=== PATIENT | female | born 1980 | race Two or more races ===

== ENCOUNTER 2024-09-10 09:35 | Outpatient (RCR) | payer MEDICAID, SELFPAY | END 2024-09-22 23:59 | disposition home or self-care (01) | LOC: SCTC 09:35 | PROVIDERS: PCP Physician Assistant; Referring Provider Physician Assistant; Visit Provider Nurse Practitioner Family | DX: C50.812 Malignant neoplasm of overlapping sites of left female breast (principal); Z17.421 Hormone receptor negative with human epidermal growth factor receptor 2 negative status; C50.211 Malignant neoplasm of upper-inner quadrant of right female breast; Z17.0 Estrogen receptor positive status [ER+]; Z17.22 Progesterone receptor negative status; Z17.32 Human epidermal growth factor receptor 2 negative status; Z15.01 Genetic susceptibility to malignant neoplasm of breast; Z92.3 Personal history of irradiation; Z88.8 Allergy status to other drugs, medicaments and biological substances; Z92.21 Personal history of antineoplastic chemotherapy; M81.0 Age-related osteoporosis without current pathological fracture; Z79.810 Long term (current) use of selective estrogen receptor modulators (SERMs); E11.9 Type 2 diabetes mellitus without complications; E66.9 Obesity, unspecified; Z68.41 Body mass index [BMI] 40.0-44.9, adult; K76.0 Fatty (change of) liver, not elsewhere classified; Z79.85 Long-term (current) use of injectable non-insulin antidiabetic drugs; K59.00 Constipation, unspecified | CPT/HCPCS: 99212; G0463 ==

== ENCOUNTER 2025-01-01 15:39 | Outpatient (RCR) | payer MEDICAID, SELFPAY ==
--- NOTE | 2025-01-20 22:22 | CTCFLWUP_ITS ---
Patient: MOI TINSLEY : 1980 Page 4 of 6 FOLLOW UP NOTE DATE OF SERVICE: 01/01/2025 NAME: MOI TINSLEY ACCOUNT: [id number] : 1980 AGE: 44 INTERVAL HISTORY: Patient doing well. She is losing weight which she attributes to Ozempic. She is on tamoxifen. 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 Bilateral modified radical mastectomies. BRCA1 positive. Patient is allergic to Taxol. Patient had 4 cycles of AC followed by Abraxane. Bilateral salpingo-oophorectomies (10/15/2020) Anastrozole started on 10/30/2020-06/23/2023, discontinued due to osteoporosis, started on tamoxifen 20 mg daily on 06/23/2023. DEXA, osteoporosis, 06/13/2023 Reclast started on 08/31/2023 History of fatty liver Obesity, BMI 43.2 (02/01/2024) REASON FOR TODAY?S VISIT: This is office follow-up visit for breasts cancer and osteoporosis. Malignant neoplasm of upper-outer quadrant of left female breast [ICD10] C50.412; Malignant neoplasm of central portion of right female breast [ICD10] C50.111 DATE OF DIAGNOSIS: 2018 STAGE/TNM: T2 N0 M0 Residual disease after chemotherapy Triple negative high-grade invasive carcinoma of the left breast in 2019 and high-grade invasive ductal carcinoma of the right breast ER positive TREATMENT HISTORY: Care?Plan Start?Date Cycle Day Intent DOXOrubicin?60,?Cyclophos?600 04/19/2019 1 14 Primary-Neoadjuvant Taxol?175/m2?q?2?wks?done?dense?for?4?cycles 07/19/2019 1 14 Curative?(adjuvant) Abraxane?125?mg?wkly?adj?shek 11/26/2019 1 8 Curative?(adjuvant) Lupron?7.5?mg 06/02/2020 1 30 Curative?(adjuvant) Reclast 08/16/2023 1 365 Palliative HISTORY OF PRESENT ILLNESS: Ms. Tinsley is here at [facility]. Patient complaining of constipation that started 1 month ago when she started Ozempic for her diabetes and weight management. Patient reports she has an upcoming appointment with GI in October 2024 for colonoscopy consultation due to an anal fissure from history of diarrhea. No diarrhea at this time. Patient denies bloody stools, denies black stools. Patient reports good appetite and energy levels. Patient has not received annual Reclast that is due this month, plans to have her wisdom tooth extracted soon and then restart Reclast. Denies any cough, chest pain, abdominal pain or leg cramps, fever. Patient taking tamoxifen 20 mg daily, tolerating it well. Ms. Tinsley is also taking Citracal 1 tablet p.o. twice daily. History of fatty liver and elevated LFTs , patient following up with PCP for management. Labs from 09/04/2024 shows CEA 0.7, CA 15-3 11.2. HISTORY: Moi Tinsley is a 44-year-old S[place] speaking female 11/08/2018: Patient had left breast ultrasound for history of a palpable left breast mass. Ultrasound showed a 1.5 x 1.8 x 1.8 lobulated hypoechoic mass in the left breast 4 cm from the nipple at 11 o'clock position. 11/14/2018: Bilateral breast mammograms confirmed a mass at 11 o'clock position in the left breast with irregular margins. 02/14/2019: Patient had repeat left breast ultrasound which showed a 3.1 x 2.1 x 2.6 cm oval mass with indistinct margins, vascular at 12 o'clock position as well as enlarged left axillary lymph nodes measuring 2.7 x 1.7 cm in size. 02/14/2019: She had ultrasound-guided biopsy of the left breast mass. Pathology showed a high-grade invasive mammary carcinoma without any lymphovascular invasion or perineural invasion. It was ER negative, WV negative as well as HER-2/coral negative. 03/13/2019: Fine-needle aspiration of the right breast mass showed ER positive high-grade malignant mammary carcinoma. Specimen was not formalin fixed and the prognostic hormonal markers were not done. Fine-needle aspiration of the left axillary lymph node showed malignant cells most consistent with metastatic mammary carcinoma. 03/29/2019: CT scan of NCAP- CT scan of the neck with IV contrast test showed bilateral carotid triangle lymph nodes the largest on the left side measuring up to 11 mm in size. Left retroclavicular lymph nodes the largest [address] scan of the chest abdomen pelvis with IV contrast showed bilateral breast masses as well as left axillary lymph nodes. No mediastinal adenopathy or pulmonary parenchymal nodules were noted. No metastatic disease in the abdomen or pelvis. Negative for osseous metastatic disease. 03/30/2019: PET CT scan?Non hypermetabolic cervical lymphadenopathy. 04/03/2019: Bilateral breast MRI: Left breast showed a 4.3 x 4 cm suspicious mass at 12 o'clock position with metastatic left axillary lymph nodes, the largest 32 mm in size. Right breast showed a 1.5 x 1.4 cm mass at 1 o'clock position with additional multiple nodular foci of breast carcinoma extending anteriorly to the nipple as well as metastatic right axillary lymph nodes. 04/04/2019: Left carotid lymph node fine-needle aspiration was negative for malignancy. 04/18/2019: Echocardiogram?LVEF 65%. 04/19/2019? 06/07/2019: Patient received 4 cycles of dose dense AC chemotherapy in the neoadjuvant setting 07/19/2019: Patient received first cycle of Taxol. 08/09/2019: Patient developed severe reaction to Taxol during her second cycle with the difficulty breathing as well as sensation of passing out. Only 19.6 mL of Taxol was given. She developed these reactions 7 minutes into infusion. For the Taxol infusion was discontinued. 10/22/2019: Patient had bilateral modified radical mastectomy. Right breast specimen showed a 2.5 x 2.1 x 1.5 cm (ypT2, N0) high-grade invasive ductal carcinoma. 16 lymph nodes were negative for metastatic disease. Left breast specimen did not show any evidence of residual cancer. 18 lymph nodes were negative for metastatic disease. 12/06/2019?02/14/2020: Patient is received 9 weekly dose of Abraxane in the adjuvant setting. 03/10/2020?05/16/2020: Patient received 6300 cGy radiation to the right chest. 03/25/2020: PET CT scan? 04/23/2020: MRI of the brain with contrast? 05/16/2020: Patient started having menstrual. Which lasted for about 3 days. 06/12/2020: Patient received Lupron 7.5 mg IM. Unfortunately following the injection she started developing severe headaches flushing and hot flashes. Patient decided not to pursue any further Lupron injections. 10/15/2020: Patient had bilateral salpingo-oophorectomy. 10/30/2020: Patient started anastrozole 1 mg p.o. daily. 12/19/2021: Bone scan?negative for osseous metastatic disease. 12/26/2021: CT scan of the chest with IV contrast? 10/11/2022: Hemoglobin 10.3, MCV 94, WBC 5.3, ANC 2.9, platelets 254,000, creatinine 0.5 and CEA less than 0.5. 06/13/2023: Bone density test 06/23/2023: Anastrozole discontinued. Ms. Tinsley is started on tamoxifen 20 mg p.o. daily. Citracal 1 tablet p.o. twice daily is also prescribed 10/04/2023: Hemoglobin 12.7, MCV 94, WBC 5.2, ANC 3.0, platelets 230,000, creatinine 0.46 02/11/2024: Hemoglobin 12.6, MCV 99, WBC 5.8, ANC 3.3, platelets 202,000, creatinine 0.52, AST 81 ALT 65, T. bili 0.3, Glucose 220 09/04/2024: Hemoglobin 11.2, MCV 103, WBC 5.4, ANC 3.2, platelets 218,000, creatinine 0.64, AST 46, ALT 46, T. bili 0.5, CEA 0.7, CA 15-3 is 11.2. OTHER MEDICAL HISTORY/CONDITIONS: FAMILY HISTORY: SOCIAL HISTORY: PATIENT ACCOUNT LIAISON HISTORY: MEDICATIONS: 1. Citracal - 200 mg (950 mg) 1 tab Twice a Day 2. losartan - 50 mg 1 tab Daily 3. tamoxifen - 20 mg 1 tab one tab po q daily Medications Last Reconciled by Jasmyne Lovell MD on 01/01/2025 ALLERGIES: paclitaxel; paclitaxel REVIEW OF SYSTEMS: A complete 14-point review of systems was performed and is negative except as noted in interval history. PHYSICAL EXAMINATION: VITAL SIGNS: Temperature?99.5, B/P?149/99, Oxygen?Saturation?99% Weight?204?lbs PAIN: 0 - No pain ECOG Performance Status: 0 - Asymptomatic and fully active GENERAL APPEARANCE: Appears well, in no apparent distress, appropriately interactive. HEENT: Normocephalic, no temporal wasting, normal conjunctiva, no scleral icterus, normal hearing, lips without lesions, neck normal range of motion. CARDIOVASCULAR: Not assessed. PULMONARY: Normal respiratory effort, no respiratory distress or use of accessory muscles, speaking in full sentences, no tachypnea. EXTREMITIES: No pedal edema or cyanosis. SKIN: Normal skin appearance. NEUROLOGIC: Alert and oriented x4. PSHYCHIATRIC: Appropriate affect, mood normal, behavior normal, intact thought and speech. LABORATORY DATA: I have personally reviewed and interpreted each of the patient?s relevant lab tests, abnormal findings are below: Date 10/11/22 10/14/22 ??WHITE?BLOOD?COUNT?(Thou/mm3) 5.3 ? ??RED?BLOOD?COUNT?(Miln/mm3) 3.30?L ? ??HEMOGLOBIN?(gm/dl) 10.3?L ? ??HEMATOCRIT?(%) 31.0?L ? ??PLATELET?COUNT?(Thou/mm3) 254 ? ??NEUTROPHILS?%,?AUTO?(%) 54 ? ??LYMPH?%,?AUTO?(%) 32 ? ??NEUTROPHILS,?AUTO?(Thou/mm3) 2.9 ? ??GLUCOSE,RANDOM?(mg/dL) 136?H ? ??BLOOD?UREA?NITROGEN?(mg/dL) 7?L ? ??CREATININE?(mg/dL) 0.50?L ? ??SODIUM?(mmol/L) 141 ? ??POTASSIUM?(mmol/L) 3.3?L ? ??CHLORIDE?(mmol/L) 103 ? ??CrCl?(CandG)?(ml/min) 224.40 ? ??AST/SGOT?(Unit/L) 67?H ? ??ALT/SGPT?(Unit/L) 93?H ? ??ALKALINE?PHOSPHATASE?(Unit/L) 132?H ? ??BILIRUBIN,?TOTAL?(mg/dL) 0.8 ? ??PROTEIN?TOTAL?(gm/dl) 7.6 ? ??ALBUMIN,?SERUM?(gm/dl) 4.0 ? ??GLOBULIN?(gm/dl) 3.6?H ? ??ALBUMIN/GLOBULIN?RATIO 1.1?L ? ??CALCIUM,?SERUM?(mg/dL) 8.9 ? ??CALCIUM?SERUM?(CORRECTED)?(mg/dL) 8.9 ? ??CEA?(O*)?(ng/ml) <?0.5 ? ??TOTAL?IRON?BINDING?CAP?(S*)?(mcg/dL) ? 282 ??UNBOUND?IBC?(mcg/dL) ? 247 ASSESSMENT/PLAN: #1triple negative high-grade invasive mammary carcinoma of the left breast with palpable axillary lymph nodes (02/14/2019) patient had pathological CR with neoadjuvant chemotherapy. 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 BRCA1 positive.Status post bilateral radical mastectomies. Right breast specimen showed residual 2.5 cm tumor as described above. 16 lymph nodes were negative for metastatic disease. Left breast specimen did not show any evidence of residual cancer. 18 lymph nodes were negative for metastatic disease. Status post 4 cycles of dose dense AC and 1 cycle of Taxol chemotherapy in the neoadjuvant setting. Patient developed severe breathing difficulty and sensation of passing out 7 minutes into second Taxol infusion. Taxol discontinued.BRCA1 positive. Patient received adjuvant Abraxane after the surgery in the adjuvant setting.S/p radiation therapy to the right chest on 05/16/2020.Ms. Tinsley had bilateral salpingo-oophorectomies on October 15, 2020Anastrozole discontinued. The patient is started on tamoxifen 20 mg p.o. daily on 06/23/2023.Currently Ms. Tinsley is on Citracal 1 tablet p.o. twice daily. Will do scan to look for any recurrence Patient want to be referred for possible reconstruction as it affect her psychologically Will do workup for anemia weeks ORDERS: Order # Description [id number] Ferritin + Folic Acid; Serum + Vitamin B-12 + Iron Panel + Assay Of Haptoglobin Quant + Lactate Dehydrogenase (LDH) [id number] Thyroid Stimulating Hormone + Assay Triiodothyronine (T3) [id number] MD Follow Up [id number] Scan + Chest + Abdomen and Pelvis + With W/O Contrast RETURN TO CLINIC: 4 to 6 weeks BILLING AND COMPLIANCE: I reviewed external records from providers outside my specialty as summarized above. I spent a total of 50 minutes on this patient?s care on the day of their visit excluding time spent related to any billed procedures. This time includes time spent with the patient as well as time spent documenting in the medical record, reviewing patients records and tests, obtaining history, placing orders, communicating with other healthcare professionals, counseling the patient, family or caregiver, and/or care coordination for the diagnoses above. Electronically Signed by: Deon Lawler MD T: 10:19 PM CC: Fiona? PCP: Akhil Beaver Referring: Akhil Beaver This document was completed utilizing speech recognition software. Grammatical errors, random word insertions, pronoun errors, and incomplete sentences are an occasional consequence of this system due to software limitations, ambient noise, and hardware issues. Any formal questions or concerns about the content, text or information contained within the body of this dictation should be directly addressed to the provider for clarification.
== END 2025-01-21 23:59 | disposition home or self-care (01) ==
LOC: SCTC 15:39
PROVIDERS: PCP Physician Assistant; Referring Provider Physician Assistant; Visit Provider Internal Medicine Hematology & Oncology
DX: C50.212 Malignant neoplasm of upper-inner quadrant of left female breast (principal); Z17.421 Hormone receptor negative with human epidermal growth factor receptor 2 negative status; C50.111 Malignant neoplasm of central portion of right female breast; Z17.0 Estrogen receptor positive status [ER+]; Z17.22 Progesterone receptor negative status; Z17.32 Human epidermal growth factor receptor 2 negative status; Z90.13 Acquired absence of bilateral breasts and nipples; Z79.810 Long term (current) use of selective estrogen receptor modulators (SERMs); Z92.3 Personal history of irradiation; M81.0 Age-related osteoporosis without current pathological fracture
CPT/HCPCS: 99212; G0463

== ENCOUNTER → 2025-01-24 | Outpatient (CLI) | payer MEDICAID, SELFPAY ==
--- NOTE | 2025-01-24 11:00 | XR_ITS ---
Examination: CT chest with intravenous contrast CT abdomen with intravenous contrast CT pelvis with intravenous contrast CT chest without intravenous contrast CT abdomen without intravenous contrast CT pelvis without intravenous contrast 2-D coronal and sagittal reconstructions Time of exam: January 24, [address] chest December 25, 2021, nuclear medicine bone scan December 18, 2021 PET/CT scan June 26, 2021 INDICATIONS: Diagnosis malignant neoplasm bilateral breasts postmastectomy, restaging CTDI: vol (mGy) : 22.8 DLP: (mGycm): 1576 Technique: Multiple axial images of the chest, abdomen and pelvis with intravenous contrast, 3.0 mm slice thickness. Images obtained post intravenous injection Isovue 370 60 cc. 2-D sagittal and coronal reconstructions. Low dose protocols were performed. One or more of the following dose reduction techniques were used; automated exposure control, adjustment of the mA and/or KV according to patient size, use of iterative reconstruction technique. Findings: No thoracic aortic aneurysm dilatation Pulmonary artery segments are not enlarged No paratracheal tracheobronchial or bronchopulmonary adenopathy No pneumonia, pulmonary edema, pleural disease or pulmonary nodules No breast chest wall masses or axillary lymphadenopathy Fatty infiltration throughout the liver, no focal liver or splenic lesions No gallstones No pancreatic or adrenal mass No renal or ureteral calculi, no hydronephrosis No interval abdominal or pelvic lymphadenopathy No bowel obstruction No pericecal inflammatory change No pelvic mass Bladder intact Intact osseous structures IMPRESSION: No interval metastatic disease
== END | disposition home or self-care (01) ==
PROVIDERS: PCP Family Medicine; Referring Provider Internal Medicine Hematology & Oncology; Visit Provider Internal Medicine Hematology & Oncology
DX: C50.412 Malignant neoplasm of upper-outer quadrant of left female breast (principal); C50.111 Malignant neoplasm of central portion of right female breast
CPT/HCPCS: 71270; 74178; A4649; Q9967

== ENCOUNTER 2025-03-13 10:05 | Outpatient (RCR) | payer MEDICAID, SELFPAY | END 2025-03-23 23:59 | disposition home or self-care (01) | LOC: SCTC 10:05 | PROVIDERS: PCP Internal Medicine; Referring Provider Family Medicine; Visit Provider Nurse Practitioner Family | DX: M81.0 Age-related osteoporosis without current pathological fracture (principal); C50.412 Malignant neoplasm of upper-outer quadrant of left female breast; C50.111 Malignant neoplasm of central portion of right female breast; Z17.421 Hormone receptor negative with human epidermal growth factor receptor 2 negative status; Z17.0 Estrogen receptor positive status [ER+]; Z92.21 Personal history of antineoplastic chemotherapy; Z92.3 Personal history of irradiation; Z90.722 Acquired absence of ovaries, bilateral; Z79.810 Long term (current) use of selective estrogen receptor modulators (SERMs); E66.9 Obesity, unspecified; Z68.41 Body mass index [BMI] 40.0-44.9, adult | CPT/HCPCS: 99212; G0463 ==

== ENCOUNTER 2025-04-17 10:07 | Outpatient (RCR) | payer MEDICAID, SELFPAY | END 2025-04-22 23:59 | disposition home or self-care (01) | LOC: SCTC 10:07 | PROVIDERS: PCP Internal Medicine; Referring Provider Internal Medicine; Visit Provider Internal Medicine Hematology & Oncology | DX: C50.412 Malignant neoplasm of upper-outer quadrant of left female breast (principal); Z17.421 Hormone receptor negative with human epidermal growth factor receptor 2 negative status; C50.111 Malignant neoplasm of central portion of right female breast; Z17.0 Estrogen receptor positive status [ER+]; Z17.21 Progesterone receptor positive status; Z17.32 Human epidermal growth factor receptor 2 negative status; Z90.13 Acquired absence of bilateral breasts and nipples; Z79.810 Long term (current) use of selective estrogen receptor modulators (SERMs); K76.0 Fatty (change of) liver, not elsewhere classified; M81.0 Age-related osteoporosis without current pathological fracture; E66.9 Obesity, unspecified; R73.9 Hyperglycemia, unspecified; D64.9 Anemia, unspecified | CPT/HCPCS: 99212; J3489; G0463 ==

== ENCOUNTER 2025-05-07 09:55 | Outpatient (RCR) | payer MEDICAID, SELFPAY | END 2025-05-23 23:59 | disposition home or self-care (01) | LOC: SCTC 09:55 | PROVIDERS: PCP Internal Medicine; Referring Provider Internal Medicine; Visit Provider Nurse Practitioner Family | DX: C50.211 Malignant neoplasm of upper-inner quadrant of right female breast (principal); C50.212 Malignant neoplasm of upper-inner quadrant of left female breast; Z17.421 Hormone receptor negative with human epidermal growth factor receptor 2 negative status; M81.0 Age-related osteoporosis without current pathological fracture; Z92.21 Personal history of antineoplastic chemotherapy; Z17.0 Estrogen receptor positive status [ER+]; Z17.22 Progesterone receptor negative status; Z17.32 Human epidermal growth factor receptor 2 negative status; Z90.13 Acquired absence of bilateral breasts and nipples; Z15.01 Genetic susceptibility to malignant neoplasm of breast; Z92.3 Personal history of irradiation; Z79.810 Long term (current) use of selective estrogen receptor modulators (SERMs); E66.9 Obesity, unspecified; K76.0 Fatty (change of) liver, not elsewhere classified | CPT/HCPCS: 99212; G0463 ==

== ENCOUNTER → 2025-06-14 | Outpatient (CLI) | payer MEDICAID, SELFPAY ==
--- NOTE | 2025-06-14 12:20 | XR_ITS ---
Examination: Bone densitometry Date and time of exam:June 14, 2025 1240 hours Comparison June 14, 2025 INDICATIONS: Hysterectomy age 41 calcium 3 years, diagnosis bilateral breast cancer diabetic, personal history osteoporosis Technique: Lumbar spine and hip total bone mineralization values of an calculated. Peak reference and age match control results have been displayed. Findings: Lumbar spine total bone mineralization is0.837 gm/cm2. This is 1.9 standard deviations below peak reference. This is 1.5 standard deviations below age-matched controls. Hip total bone mineralization is 1.015 gm/cm2 This is 0.4 standard deviations above peak reference. This is 0.4 standard deviations above age-matched controls Impression: There is osteopenia based on lumbar spine measurements. There is osteopenia based on hip measurements Lumbar mineralization is increase 7.7% compared with June 13, 2023 Hip mineralization is increase 7.9% compared with June 13, 2023
== END | disposition home or self-care (01) ==
LOC: CDIM 11:49
PROVIDERS: Referring Provider Internal Medicine Hematology & Oncology; Visit Provider Internal Medicine Hematology & Oncology
DX: M85.89 Other specified disorders of bone density and structure, multiple sites (principal); C50.412 Malignant neoplasm of upper-outer quadrant of left female breast; C50.111 Malignant neoplasm of central portion of right female breast
CPT/HCPCS: 77080

== ENCOUNTER → 2025-07-03 | Outpatient (CLI) | payer MEDICAID, SELFPAY ==
--- NOTE | 2025-07-03 09:30 | XR_ITS ---
Examination: MRI abdomen with intravenous contrast. MRI abdomen without intravenous contrast. Date and time of exam: July 03, 2025 1036 hours COMPARISON: CT chest abdomen pelvis January 24, 2025, CT chest December 25, 2021, bone scan December 18, 2021, PET CT scan 06/26/2021 INDICATIONS: Diagnosis malignant neoplasm upper outer quadrant left female breast, malignant neoplasm cervical portion right female breast, restaging Technique: Multiple axial, sagittal and coronal sections of the abdomen obtained. Transverse images, TR 6020, TE 107. T1 weighted transverse images, TR 582, TE 9.5. T2-weighted sagittal images, TR 4000, TE 105. T2-weighted sagittal images, TR 4000, TE 5. Coronal images, TR 4210, TE 107. Axial and coronal images are obtained post 20 cc intravenous injection, gadolinium. Findings: No focal liver lesion Mildly distended gallbladder, no gallstones No common hepatic or common bile duct stones No pancreatic mass or dilated pancreatic duct Negative for splenomegaly No ascites 10 mm upper pole right renal cyst, no hydronephrosis Postcontrast images demonstrate no abnormal enhancing liver or splenic lesion No pathologic abdominal lymphadenopathy IMPRESSION: Negative for metastatic disease Gallbladder is distended, recommend hepatobiliary sonography follow-up
== END | disposition home or self-care (01) ==
LOC: SMRI 09:28
PROVIDERS: PCP Internal Medicine; Referring Provider Nurse Practitioner Family; Visit Provider Nurse Practitioner Family
DX: K82.8 Other specified diseases of gallbladder (principal); C50.412 Malignant neoplasm of upper-outer quadrant of left female breast; C50.111 Malignant neoplasm of central portion of right female breast
CPT/HCPCS: 74183; A9577

== ENCOUNTER 2025-07-17 09:02 | Outpatient (RCR) | payer MEDICAID, SELFPAY | END 2025-07-23 23:59 | disposition home or self-care (01) | LOC: SCTC 09:02 | PROVIDERS: PCP Internal Medicine; Referring Provider Internal Medicine; Visit Provider Nurse Practitioner Family | DX: C50.412 Malignant neoplasm of upper-outer quadrant of left female breast (principal); Z17.421 Hormone receptor negative with human epidermal growth factor receptor 2 negative status; Z92.21 Personal history of antineoplastic chemotherapy; M81.0 Age-related osteoporosis without current pathological fracture; C50.111 Malignant neoplasm of central portion of right female breast; Z17.0 Estrogen receptor positive status [ER+]; Z17.22 Progesterone receptor negative status; Z17.32 Human epidermal growth factor receptor 2 negative status; Z90.13 Acquired absence of bilateral breasts and nipples; Z79.810 Long term (current) use of selective estrogen receptor modulators (SERMs); E66.9 Obesity, unspecified; D64.9 Anemia, unspecified; Z68.41 Body mass index [BMI] 40.0-44.9, adult; K76.0 Fatty (change of) liver, not elsewhere classified | CPT/HCPCS: 99212; G0463 ==

== ENCOUNTER → 2025-10-04 | Outpatient (CLI) | payer MEDICAID, SELFPAY ==
--- NOTE | 2025-10-04 08:45 | XR_ITS ---
Examination: Abdomen sonogram, complete Date and time of exam:: October 04, 2025, 0921 hours INDICATIONS: Right upper abdominal pain beginning 6 months ago Technique: Multiple real-time grayscale transabdominal sonographic images of the abdomen have been obtained. Findings: Negative for gallstones Gallbladder wall thickened 0.5 cm Common bile duct 0.5 cm no stones Pancreatic head 2.9 cm Aorta not enlarged. Liver 14.5 cm lobular contour Normal hepatopetal portal venous flow Patent IVC Right kidney 12.6 cm renal cortex 1.9 cm Left kidney 12.0 cm cortex 1.9 cm Mild renal scarring Spleen 9.9 cm IMPRESSION: Thickened gallbladder wall, clinical correlation advised, consider HIDA scan or MRCP follow-up to exclude cholecystitis
== END | disposition home or self-care (01) ==
LOC: CDIM 08:50
PROVIDERS: Referring Provider Nurse Practitioner Family; Visit Provider Nurse Practitioner Family
DX: C50.412 Malignant neoplasm of upper-outer quadrant of left female breast (principal); C50.111 Malignant neoplasm of central portion of right female breast; K82.9 Disease of gallbladder, unspecified
CPT/HCPCS: 76700

== ENCOUNTER 2025-10-09 10:21 | Outpatient (RCR) | payer MEDICAID, SELFPAY | END 2025-10-23 23:59 | disposition home or self-care (01) | LOC: SCTC 10:21 | PROVIDERS: PCP Internal Medicine; Referring Provider Internal Medicine; Visit Provider Nurse Practitioner Family | DX: C50.412 Malignant neoplasm of upper-outer quadrant of left female breast (principal); Z17.421 Hormone receptor negative with human epidermal growth factor receptor 2 negative status; C50.211 Malignant neoplasm of upper-inner quadrant of right female breast; Z17.0 Estrogen receptor positive status [ER+]; Z17.22 Progesterone receptor negative status; Z17.32 Human epidermal growth factor receptor 2 negative status; Z90.13 Acquired absence of bilateral breasts and nipples; Z15.01 Genetic susceptibility to malignant neoplasm of breast; E66.9 Obesity, unspecified; Z68.41 Body mass index [BMI] 40.0-44.9, adult; K76.0 Fatty (change of) liver, not elsewhere classified | CPT/HCPCS: 99212; G0463 ==